=== PATIENT | female | born 1980 | race Caucasian/White ===

== ENCOUNTER 2021-10-01 11:04 | Outpatient (CLI) | payer OTHER, SELFPAY ==
--- NOTE | ~2021-10-01 | MMUS_ITS ---
EXAMINATION: MM diagnostic harika BI w gerber, US breast LT complete HISTORY: Patient feels 2 left breast lumps TECHNIQUE: Bilateral ML, MLO and CC 3-D tomosynthesis images were performed and synthetic 2-D images were generated. CAD analysis was submitted and interpreted. High resolution complete left breast ultr asound including all 4 quadrants and subareolar areas was performed. COMPARISON: None BREAST PARENCHYMAL COMPOSITION: There are scattered areas of fibroglandular density. FINDINGS: MAMMOGRAPHIC FINDINGS: There is a circumscribed oval 4.9 x 6.4 mm opacity in the outer mid left breast at mid breast depth, having benign mammographic features. Otherwise no suspicious mass, architectural distortion, malignant calcification, skin thickening or r etraction of either breast is noted. ULTRASOUND: At 9:00 9 cm from the nipple there is a 2.4 mm sonolucency without internal vascularity or suspicious shadowing, likely a small cyst. No suspicious mass or shadowing of the left breast is evident. IMPRESSION: 1. Benign findings. No mammographic evidence of malignancy 2. Routine annual mammographic screening is recommended BI-RADS Category 2: Benign finding(s). Reviewed, dictated and finalized at location A. IMPRESSION: 1. Benign findings. No mammographic evidence of malignancy 2. Routine annual mammographic screening is recommended BI-RADS Category 2: Benign finding(s).
== END 2021-10-01 11:05 | disposition home or self-care (01) ==
PROVIDERS: Visit Provider Family Medicine
DX: N63.21 Unspecified lump in the left breast, upper outer quadrant (principal)
CPT/HCPCS: 76641; 77062; 77066; G0279